=== PATIENT | male | born 1980 | race Caucasian/White ===

== ENCOUNTER 2016-05-12 19:47 | Emergency (ER) | payer MEDICARE, MEDICAID ==
--- NOTE | 2016-05-12 20:57 | XRAY Preliminary Report ---
Exam: XR Wrist 3 View RT IMPRESSION: Normal wrist radiography. [facility] SITE ID: [id number]
--- NOTE | 2016-05-12 21:07 | ED Physician Documentation ---
PD HPI UPPER EXT INJURY - Stated complaint Stated Complaint: GLF - RT WRIST INJURY - Chief complaint Chief Complaint: Ext Problem - History obtained from History obtained from: Patient - History of Present Illness Location: Right, Wrist Type of injury: Fall Timing - onset: How many days ago (3) Timing - duration: Days Timing - details: Abrupt onset, Still present Improved by: Rest Worsened by: Moving, Palpating Associated symptoms: Swelling (mild at wrist). No: Weakness, Numbness Similar symptoms before: Has not had sx before Review of Systems Skin: denies: Abrasion (s), Laceration (s) Neurologic: denies: Focal weakness, Numbness PD PAST MEDICAL HISTORY - Past Medical History Past Medical History: Yes Cardiovascular: Hypertension Respiratory: Asthma, Sleep apnea Neuro: Headache/migraine Endocrine/Autoimmune: None GI: GI bleed, Ulcers, Hiatal hernia, Cirrhosis : None HEENT: None Psych: Depression, Anxiety, Post traumatic stress disorder Musculoskeletal: Osteoarthritis Derm: None - Past Surgical History Past Surgical History: Yes General: Cholecystectomy Ortho: Other - Present Medications Home Medications: Ambulatory Orders Medication Instructions Recorded Confirmed Lisinopril 20 mg PO DAILY 07/04/14 05/12/16 Cyclobenzaprine [Flexeril] 10 mg PO TID PRN #14 tablet 09/17/15 05/12/16 Lisinopril 10 mg PO DAILY #30 tablet 05/12/16 Oxycodone HCl/Acetaminophen 1 each PO Q6H PRN #10 tablet 05/12/16 [Percocet 5-325 mg Tablet] - Allergies Allergies/Adverse Reactions: Allergies Allergy/AdvReac Type Severity Reaction Status Date / Time acetaminophen [From Vicodin] Allergy Itching Verified 05/12/16 21:55 clindamycin Allergy Anaphylaxis Verified 05/12/16 19:58 hydrocodone bitartrate * Allergy Itching Verified 05/12/16 21:55 [From Vicodin] sulfamethoxazole Allergy Anaphylaxis Verified 05/12/16 19:58 [From Bactrim] trimethoprim [From Bactrim] Allergy Anaphylaxis Verified 05/12/16 19:58 - Social History Does the pt smoke?: Yes Smoking Status: Current every day smoker Does the pt drink ETOH?: No Does the pt have substance abuse?: Yes - Immunizations Immunizations are current?: Yes - POLST Patient has POLST: No PD ED PE NORMAL - Vitals Vital signs reviewed: Yes (high blood pressuer) - General General: Alert and oriented X 3, No acute distress, Well developed/nourished - HEENT HEENT: Atraumatic - Neck Neck: Supple, no meningeal sign, No bony TTP, No adenopathy - Cardiac Cardiac: RRR, No murmur - Respiratory Respiratory: Clear bilaterally - Back Back: No spinal TTP - Derm Derm: Normal color, Warm and dry - Extremities Extremities: Other (right wrist with some radial side dorsal pain and tenderness. Mild swelling. ) - Neuro Neuro: Alert and oriented X 3, No motor deficit, No sensory deficit Results - Vitals Vitals: Oxygen O2 Source Room air PD MEDICAL DECISION MAKING - ED course Complexity details: reviewed results (no fracture; given wrist brace. He does have elevated BP here and he used to be on BP med, but had stopped it a year or so agao. Would be willing to resume taking BP meds. ), considered differential, d/w patient Departure - Departure Disposition: Home, Self Care Clinical Impression: Right wrist sprain Qualifiers: Encounter type: initial encounter Qualified Code(s): S63.501A - Unspecified sprain of right wrist, initial encounter Contusion of wrist, right Qualifiers: Encounter type: initial encounter Qualified Code(s): S60.211A - Contusion of right wrist, initial encounter Hypertension Qualifiers: Hypertension type: unspecified secondary hypertension Qualified Code(s): I15.9 - Secondary hypertension, unspecified Condition: Stable Record reviewed to determine appropriate education?: Yes Instructions: ED Splint Care Velcro, ED Sprain Wrist, ED Hypertension New Begin Tx Follow-Up: MINGO BABCOCK [Primary Care Provider] - Prescriptions: Lisinopril 10 mg PO DAILY #30 tablet Oxycodone HCl/Acetaminophen [Percocet 5-325 mg Tablet] 1 each PO Q6H PRN #10 tablet PRN Reason: Pain Comments: Wrist splint for 7-10 days until fully better. Tylenol or Ibuprofen as needed for pains. Rest and ice/elevate wrist for tonight and tomorrow for swelling. Discharge Date/Time: 05/12/16 22:03
--- NOTE | 2016-05-12 21:10 | XRAY Report ---
EXAM: RIGHT WRIST RADIOGRAPHY EXAM DATE: 05/12/2016 08:10 PM. CLINICAL HISTORY: Right wrist pain and swelling after a fall. COMPARISON: Right hand 12/06/2014. TECHNIQUE: 3 views. FINDINGS: Bones: Normal. No fractures or bone lesions. Joints: Normal. No subluxations. Soft Tissues: Normal. No soft tissue swelling. IMPRESSION: Normal wrist radiography. [facility] Referring Provider Line: [phone] SITE ID: [id number]
[2016-05-12] MEDS ORDERED: IBUPROFEN 600 MG TABLET PO STA (21:26)
[2016-05-12] MEDS ORDERED: HYDROcod/ACETAM 5/325 MG TABLET PO STA (21:26)
[2016-05-12] MEDS ORDERED: HYDROcod/ACETAM 5/325 MG TABLET ONE (21:31)
[2016-05-12] MEDS ORDERED: IBUPROFEN 600 MG TABLET PO ONE (21:31)
[2016-05-12] MEDS ORDERED: HYDROcod/ACET 5/325 Prepack 6 PO ONE ×2 (21:36→21:39)
[2016-05-12] MEDS ORDERED: oxyCODONE/ACET 5/325 Prepack 4 PO STA (21:54)
[2016-05-12 21:58] VITALS: BP 159/117
[2016-05-12] MEDS ORDERED: oxyCODONE/ACET 5/325 Prepack 4 PO ONE (21:58)
== END 2016-05-12 22:03 | disposition home or self-care (01) ==
LOC: ED 19:47
DX: S63.501A Unspecified sprain of right wrist, initial encounter (principal); S60.211A Contusion of right wrist, initial encounter; W01.0XXA Fall on same level from slipping, tripping and stumbling without subsequent striking against object, initial encounter; I15.9 Secondary hypertension, unspecified; F17.200 Nicotine dependence, unspecified, uncomplicated
CPT/HCPCS: 73110; 99283; 99284; A9270

== ENCOUNTER 2016-07-15 08:28 | Outpatient (CLI) | payer MEDICARE, MEDICAID | END 2016-07-15 08:29 | disposition home or self-care (01) | DX: M51.24 Other intervertebral disc displacement, thoracic region (principal); M47.894 Other spondylosis, thoracic region; M47.897 Other spondylosis, lumbosacral region ==

== ENCOUNTER 2016-08-03 17:17 | Emergency (ER) | payer MEDICARE, MEDICAID | END 2016-08-03 17:50 | disposition home or self-care (01) | DX: M54.41 Lumbago with sciatica, right side (principal); G89.29 Other chronic pain; M54.6 Pain in thoracic spine; I10 Essential (primary) hypertension; J45.909 Unspecified asthma, uncomplicated; G47.30 Sleep apnea, unspecified; Z87.11 Personal history of peptic ulcer disease; M19.90 Unspecified osteoarthritis, unspecified site; F17.200 Nicotine dependence, unspecified, uncomplicated ==

== ENCOUNTER 2017-01-19 18:11 | Inpatient (IN) | payer MEDICARE, MEDICAID ==
[2017-01-19] MEDS ORDERED: MORPHINE 10 MG/ML VIAL IVP STA (18:40)
[2017-01-19 18:41] LABS: BILIRUBIN,URINE NEGATIVE (NEGATIVE)
[2017-01-19] MEDS ORDERED: IOPAMIDOL-300 100 ML VIAL ONE (18:49)
[2017-01-19] MEDS ORDERED: IOPAMIDOL-300 100 ML VIAL IVP ONE (18:50)
[2017-01-19 18:54] LABS: UA w/ MICROSCOPIC CHARGE YES
--- NOTE | 2017-01-19 18:58 | ED Physician Documentation ---
PD HPI Fall - Stated complaint Stated Complaint: ARM PX - Chief complaint Chief Complaint: Abd Pain - History obtained from History obtained from: Patient, Family - History of Present Illness Mechanism of injury: Tripped Fall distance: Other (walking into his front door) Where injury occurred: Home Timing - onset: How many hours ago (1) Injury(ies) location: Head, Chest, Abdomen, Back Pain level max: 8 Pain level now: 8 Quality of pain: Pain, Aching, Dull Associated symptoms: Other (hematuria). No: LOC, AMS, Amnesia, Seizures, Ear drainage, Nasal drainage, Neck pain, Weakness, Paresthesias, Dyspnea, Nausea / vomiting, Hematemesis, Abdominal distension Symptoms improve with: Rest Worsens with: Movement, Palpation Contributing factors: Intoxicated Similar symptoms before: Has not had sx before Recently seen: Not recently seen - Additional information Additional information: Patient tripped and fell walking into his home. Fell onto a tile step. Struck his head on the door. Also complained of pain to the right shoulder, right ribs , low back, right flank and right lower abdomen. States had hematuria grossly after the event. Review of Systems Ten Systems: 10 systems reviewed and negative Constitutional: denies: Fever, Chills Eyes: denies: Decreased vision Ears: denies: Ear pain Nose: denies: Rhinorrhea / runny nose, Congestion PD PAST MEDICAL HISTORY - Past Medical History Cardiovascular: Hypertension Respiratory: Asthma, Sleep apnea Neuro: Headache/migraine Endocrine/Autoimmune: None GI: GI bleed, Ulcers, Hiatal hernia, Cirrhosis : None HEENT: None Psych: Depression, Anxiety, Post traumatic stress disorder Musculoskeletal: Osteoarthritis Derm: None - Past Surgical History Past Surgical History: Yes General: Cholecystectomy, Gastric surgery Ortho: Other - Present Medications Home Medications: Ambulatory Orders Medication Instructions Recorded Confirmed Lisinopril 20 mg PO DAILY 07/04/14 01/19/17 - Allergies Allergies/Adverse Reactions: Allergies Allergy/AdvReac Type Severity Reaction Status Date / Time clindamycin Allergy Anaphylaxis Verified 01/19/17 18:19 hydrocodone bitartrate * Allergy Itching Verified 01/19/17 18:19 [From Vicodin] sulfamethoxazole Allergy Anaphylaxis Verified 01/19/17 18:19 [From Bactrim] trimethoprim [From Bactrim] Allergy Anaphylaxis Verified 01/19/17 18:19 - Social History Does the pt smoke?: Yes Smoking Status: Current every day smoker Does the pt drink ETOH?: No Does the pt have substance abuse?: Yes - Immunizations Immunizations are current?: Yes - POLST Patient has POLST: No PD ED PE NORMAL - Vitals Vital signs reviewed: Yes - General General: Alert and oriented X 3, No acute distress, Well developed/nourished - HEENT HEENT: PERRL, Moist mucous membranes - Neck Neck: Supple, no meningeal sign - Cardiac Cardiac: RRR, Strong equal pulses - Respiratory Respiratory: No respiratory distress, Clear bilaterally - Abdomen Abdomen: Soft, Other (Tender to palpation right upper and right lower quadrant.) - Back Back: No spinal TTP, Other (Tender to palpation along the right flank, upper and lower) - Derm Derm: Warm and dry, No rash - Extremities Extremities: Other (Tender to palpation about the right shoulder, limited range of motion secondary to pain. Neurovascularly intact. Otherwise normal exam of the extremities) - Neuro Neuro: Alert and oriented X 3, global compensation manager 2-12 intact, No motor deficit, No sensory deficit, Normal speech - Psych Psych: Normal mood, Normal affect Results - Vitals Vitals: Vital Signs - 24 hr 01/19/17 01/19/17 01/19/17 18:15 19:37 20:22 Temperature 36.8 C 36.3 C L Heart Rate 91 80 73 Respiratory 16 18 16 Rate Blood Pressure 153/98 H 147/87 H 138/86 H O2 Saturation 100 100 100 Oxygen O2 Source Room air - Labs Labs: Laboratory Tests 01/19/17 01/19/17 01/19/17 18:30 18:50 18:50 WBC 5.6 RBC 3.05 L Hgb 10.9 L Hct 32.4 L MCV 106.2 H MCH 35.8 H MCHC 33.7 RDW 13.9 Plt Count 151 MPV 9.4 Neut # 3.2 Lymph # 1.7 [place] # 0.5 Eos # 0.2 Baso # 0.1 Absolute Nucleated RBC 0.00 Nucleated RBC % 0.1 Sodium 136 Potassium 4.8 Chloride 107 Carbon Dioxide 19 L Anion Gap 10.0 BUN 42 H Creatinine 3.6 H Estimated GFR (MDRD) 19 L Glucose 101 H Calcium 8.1 L Total Bilirubin 0.5 AST 21 ALT 13 Alkaline Phosphatase 180 H Total Protein 7.4 Albumin 3.7 Globulin 3.7 Albumin/Globulin Ratio 1.0 Lipase 84 H Urine Color YELLOW Urine Clarity CLEAR Urine pH 6.0 Ur Specific [place] 1.010 Urine Protein 100 H Urine Glucose (UA) NEGATIVE Urine Ketones NEGATIVE Urine Occult Blood TRACE-INTA Urine Nitrite NEGATIVE Urine Bilirubin NEGATIVE Urine Urobilinogen 0.2 (NORMAL) Ur Leukocyte Esterase NEGATIVE Urine RBC 0-5 Urine WBC 0-3 Ur Squamous Epith Cells NONE SEEN Urine Bacteria None Seen Ur Microscopic Review INDICATED Urine Culture Comments NOT INDICATED Ethyl Alcohol 177.0 - Rads (name of study) Head CT Radiology: Prelim report reviewed, EMP read contemporaneously, See rad report ( Normal) Chest CT Radiology: Prelim report reviewed, EMP read contemporaneously, See rad report ( No acute chest abnormalities. Stable large hiatal hernia) Abdomen and pelvis CT Radiology: Prelim report reviewed, EMP read contemporaneously, See rad report ( No acute abnormalities of the abdomen and pelvis. Cholecystectomy and rectosigmoid anastomosis noted. Stable pancreatic head calcifications compatible with prior pancreatitis.) Right shoulder x-ray Radiology: Prelim report reviewed, EMP read contemporaneously, See rad report ( Negative shoulder radiography. ) PD MEDICAL DECISION MAKING - ED course Complexity details: reviewed old records, reviewed results, re-evaluated patient , considered differential, d/w patient, d/w family ED course: Patient is a 36-year-old male who presents to the emergency department after a fall onto tile steps. Had gross hematuria and diffuse abdominal pain after the event, the abdominal pain is worse in the right lower and right upper quadrants. Also had diffuse chest pain as well as striking his head on a door. He is not clinically intoxicated but smells of etoh, no neck tenderness. No neurological deficits. He is found to have acute renal failure, unclear etiology. Has had some chronic kidney disease in the past, but this is worse than his usual. Given IV fluids and will place in observation. Discuss case with the hospitalist, Dr. Sahu who accepts. This document was made in part using voice recognition software. While efforts are made to proofread this document, sound alike and grammatical errors may occur. Departure - Departure Disposition: ED Place in Observation Clinical Impression: Acute renal failure Qualifiers: Acute renal failure type: unspecified Qualified Code(s): N17.9 - Acute kidney failure, unspecified Alcohol intoxication Qualifiers: Complication of substance-induced condition: uncomplicated Qualified Code(s): F10.920 - Alcohol use, unspecified with intoxication, uncomplicated Fall Qualifiers: Encounter type: initial encounter Qualified Code(s): W19.XXXA - Unspecified fall, initial encounter Rib contusion Qualifiers: Encounter type: initial encounter Laterality: right Qualified Code(s): S20.211A - Contusion of right front wall of thorax, initial encounter Hematuria Qualifiers: Hematuria type: unspecified type Qualified Code(s): R31.9 - Hematuria, unspecified Condition: Stable Discharge Date/Time: 01/19/17 22:02
[2017-01-19 19:02] LABS: UR CULTURE IF IND NOT INDICATED; WBC,URINE 0-3 /HPF (0-3)
[2017-01-19 19:06] LABS: BASOPHILS # (AUTO) 0.1 10^3/uL (0.0-0.1); BASOPHILS % (AUTO) 1.2 %; EOSINOPHILS # (AUTO) 0.2 10^3/uL (0.0-0.7); EOSINOPHILS % (AUTO) 2.9 %; HCT - HEMATOCRIT 32.4 % (42.0-52.0); HGB - HEMOGLOBIN 10.9 g/dL (14.0-18.0); LYMPHOCYTES # (AUTO) 1.7 10^3/uL (1.5-3.5); LYMPHOCYTES % (AUTO) 30.6 %; MEAN CORPUSCULAR HEMOGLOBIN 35.8 pg (27.0-31.0); MEAN CORPUSCULAR HGB CONC 33.7 g/dL (32.0-36.0); MEAN CORPUSCULAR VOLUME 106.2 fL (80.0-94.0); MEAN PLATELET VOLUME 9.4 fL (7.4-11.4); MONOCYTES # (AUTO) 0.5 10^3/uL (0.0-1.0); MONOCYTES % (AUTO) 9.4 %; NEUTROPHILS # (AUTO) 3.2 10^3/uL (1.5-6.6); NEUTROPHILS % (AUTO) 55.9 %; NUCLEATED RED BLOOD CELLS AUTO 0.1 /100WBC; RED BLOOD COUNT 3.05 10^6/uL (4.70-6.10); RED CELL DISTRIBUTION WIDTH 13.9 % (12.0-15.0); UNCORRECTED WHITE BLOOD COUNT 5.6 x10^3/uL; WHITE BLOOD COUNT 5.6 x10^3/uL (4.8-10.8)
[2017-01-19] MEDS ORDERED: SODIUM CHLORIDE 0.9% 1,000 ML IV ONE ×2 (19:17→21:20)
[2017-01-19 19:18] LABS: BILIRUBIN,TOTAL 0.5 mg/dL (0.2-1.0); CALCIUM 8.1 mg/dL (8.5-10.3); CREATININE 3.6 mg/dL (0.6-1.2); POTASSIUM 4.8 mmol/L (3.5-5.0); TOTAL PROTEIN 7.4 g/dL (6.7-8.2)
[2017-01-19] MEDS ORDERED: MORPHINE 10 MG/ML VIAL ONE (19:34)
[2017-01-19] MEDS ORDERED: SODIUM CHLORIDE FLUSH 0.9% 10 ML SYRINGE IVP ONE (19:34)
--- NOTE | 2017-01-19 19:50 | XRAY Report ---
EXAM: RIGHT SHOULDER RADIOGRAPHY EXAM DATE: 01/19/2017 07:20 PM. CLINICAL HISTORY: Shoulder pain COMPARISON: None. TECHNIQUE: 3 views. FINDINGS: Bones: Normal. No fracture or bone lesion. Joints: The glenohumeral and acromioclavicular joints are normal. Soft tissues: The visualized hemithorax is unremarkable. No soft tissue swelling. IMPRESSION: Negative shoulder radiography. [facility] Referring Provider Line: [phone] SITE ID: [id number]
--- NOTE | 2017-01-19 19:52 | CT Preliminary Report ---
Exam: CT HEAD W/O IMPRESSION: Normal head CT. [facility] SITE ID: [id number]
--- NOTE | 2017-01-19 19:54 | CT Report ---
EXAM: CT HEAD EXAM DATE: 01/19/2017 07:26 PM. CLINICAL HISTORY: Fall. Head injury. COMPARISON: None. TECHNIQUE: Multiaxial CT images were obtained from the foramen magnum to the vertex. IV contrast: Non e. Reformats: Coronal. In accordance with CT protocol optimization, one or more of the following dose reduction techniques w ere utilized for this exam: automated exposure control, adjustment of mA and/or KV based on patient s ize, or use of iterative reconstructive technique. FINDINGS: Parenchyma: No intraparenchymal hemorrhage. No evidence of mass, midline shift, or CT findings of inf arction. Moreland-white differentiation is distinct. Extraaxial Spaces: Normal for age. No subdural or epidural collections identified. Ventricles: Normal in size and position. Sinuses and orbits: Imaged paranasal sinuses, orbits, and mastoids show no significant abnormality. Bones: No evidence of fracture or calvarial defect. Other: None. IMPRESSION: Normal head CT. [facility] Referring Provider Line: [phone] SITE ID: [id number]
--- NOTE | 2017-01-19 19:59 | CT Preliminary Report ---
Exam: CT CHEST W/ IMPRESSION: 1. No acute chest abnormalities identified. 2. Stable large hiatal hernia. [facility] SITE ID: [id number]
--- NOTE | 2017-01-19 20:02 | CT Report ---
EXAM: CT CHEST EXAM DATE: 01/19/2017 07:26 PM. CLINICAL HISTORY: Fall. Right-sided pain. COMPARISONS: 10/08/2014. TECHNIQUE: Routine helical CT imaging was performed through the chest. IV contrast: None. Reconstruct ions: Coronal and sagittal. In accordance with CT protocol optimization, one or more of the following dose reduction techniques w ere utilized for this exam: automated exposure control, adjustment of mA and/or KV based on patient s ize, or use of iterative reconstructive technique. FINDINGS: Lungs/Pleura: No nodules, bronchial thickening, consolidation, or edema. Pulmonary vasculature is nor mal. No pericardial or pleural effusion. No pneumothorax. Mediastinum: Coronary artery calcification noted. No adenopathy or masses. The heart and great vessel s are normal. Stable large hiatal hernia Bones: No fractures identified. IMPRESSION: 1. No acute chest abnormalities identified. 2. Stable large hiatal hernia. [facility] Referring Provider Line: [phone] SITE ID: [id number]
--- NOTE | 2017-01-19 20:04 | CT Preliminary Report ---
Exam: CT ABDOMEN/PELVIS W/ IMPRESSION: 1. No acute abnormalities of the abdomen and pelvis. 2. Cholecystectomy and rectosigmoid anastomosis noted. 3. Stable pancreatic head calcifications compatible with prior pancreatitis. [facility] SITE ID: [id number]
--- NOTE | 2017-01-19 20:07 | CT Report ---
EXAM: CT ABDOMEN AND PELVIS EXAM DATE: 01/19/2017 07:26 PM. CLINICAL HISTORY: Fall. Right flank pain/hematuria. COMPARISONS: 06/21/2015. TECHNIQUE: Routine helical CT imaging was performed through the abdomen and pelvis. IV contrast: 100 cc of Isovue-300. Enteric contrast: No. Reconstructions: Coronal and sagittal. In accordance with CT protocol optimization, one or more of the following dose reduction techniques w ere utilized for this exam: automated exposure control, adjustment of mA and/or KV based on patient s ize, or use of iterative reconstructive technique. FINDINGS: Liver: Normal. No masses. Gallbladder/Bile Ducts: Cholecystectomy. No ductal dilatation. Spleen: Normal. Pancreas: Stable pancreatic head calcifications, likely from prior pancreatitis. Adrenal Glands: Normal. Kidneys: Normal. No masses or hydronephrosis. Peritoneal Cavity/Bowel: Rectosigmoid anastomosis noted. No free fluid, free air or adenopathy. No ma sses or acute inflammatory process. The appendix is well visualized and normal. Pelvic Organs: The prostate and bladder are unremarkable. Vasculature: No aneurysms or other significant abnormality. Bones: No significant abnormality. Other: None. IMPRESSION: 1. No acute abnormalities of the abdomen and pelvis. 2. Cholecystectomy and rectosigmoid anastomosis noted. 3. Stable pancreatic head calcifications compatible with prior pancreatitis. [facility] Referring Provider Line: [phone] SITE ID: [id number]
[2017-01-19] MEDS ORDERED: PROCHLORPERAZINE 10 MG/2 ML VIAL IVP PRN (21:12)
[2017-01-19] MEDS ORDERED: ONDANSETRON 4 MG/2 ML VIAL IVP PRN (21:12)
[2017-01-19] MEDS ORDERED: ACETAMINOPHEN 325 MG TABLET PO PRN (21:12)
[2017-01-19] MEDS ORDERED: SODIUM CHLORIDE 0.9% 1,000 ML IV SCH ×2 (21:12→22:00)
[2017-01-19] MEDS: oxyCODONE 5 MG TABLET PO PRN (22:26)
[2017-01-19] MEDS: SODIUM CHLORIDE FLUSH 0.9% 10 ML SYRINGE IVP SCH (22:26)
[2017-01-20] MEDS: ZOLPIDEM 5 MG TABLET PO PRN (01:09)
[2017-01-20] MEDS: NICOTINE 21 MG PATCH TOP SCH ×2 (01:09→09:44)
[2017-01-20] MEDS: SODIUM CHLORIDE FLUSH 0.9% 10 ML SYRINGE IVP PRN ×3 (01:09→11:44)
[2017-01-20] MEDS: oxyCODONE 5 MG TABLET PO PRN ×5 (02:28→19:51)
[2017-01-20] MEDS: ACETAMINOPHEN 1,000 MG/100 ML 100 ML IV PRN ×2 (03:14→09:24)
--- NOTE | 2017-01-20 04:01 | HISTORY & PHYSICAL EXAMINATION ---
Chief Complaint - Chief Complaint Chief Complaint: Fall History of Present Illness - Admitted From Admitted From:: Emergency department - History Obtained From Records Reviewed: Yes History obtained from: Patient and medical records Exam Limitations: None - History of Present Illness HPI Comment/Other: Patient is a 36-year-old gentleman with a past medical history significant for hypertension, asthma, chronic kidney disease stage III, diverticulitis status post colon resection, alcohol and tobacco abuse who presented to the emergency department with a chief complaint of fall. The patient states that he had an episode 2 days ago where he blacked out and passed out hitting his head. The patient states that he was not drinking at that time. The patient has always denied drinking every time he is come to the emergency department or being admitted to the hospital but his blood alcohol level has always been positive the patient believes he is a slow metabolizer of alcohol and that is why his alcohol level is always significantly above the legal limit when he presents to the emergency department. The patient states that today he was going up the stairs when he fell hitting his left flank on the staircase. The patient states that when he then went to the bathroom he noticed that he was having some hematuria and therefore decided to come into the emergency department. The patient also states that he is having left lower back, left lower abdominal and left leg pain. The patient also states that he has been having dysuria for 1 week along with a weak stream. The patient states that he has also noticed chills and feeling of hot and cold that has been going on for the last week. The patient otherwise denies any diarrhea or vomiting over the last several days. The patient states that he did drink 1 beer and had half a shot of fireball today but is shocked by his blood alcohol level on presentation. The patient denies any current headache, blurred vision, runny nose, sore throat , cough, nasal congestion, fevers, chest pain, shortness of air, orthopnea, PND , increased lower extremity swelling, diarrhea, constipation, nausea, vomiting, changes in appetite, recent unintentional weight loss, night sweats or focal neurologic deficits. On presentation to the emergency department the patient was afebrile he was slightly hypertensive and heart rate was in the 90s but otherwise he was not in any acute respiratory distress. The patient's lab work did reveal a blood alcohol level of 177. The patient's urine was negative for bacteria and he only had 0-3 WBCs along with 0-5 RBCs with trace occult blood. The patient however was found to have a creatinine of 3.6 with a BUN of 42. The patient's baseline creatinine is 1.7. Given this significant increase in the patient's creatinine the patient was placed in observation for IV hydration and recheck of his creatinine. It was thought the patient likely has been drinking heavily given his recent falls and positive blood alcohol level and creatinine is likely elevated due to dehydration. History - Past Medical History Cardiovascular: reports: Hypertension Respiratory: reports: Asthma, Sleep apnea Neuro: reports: Headache/migraine Endocrine/Autoimmune: reports: None GI: reports: GI bleed, Ulcers, Hiatal hernia, Diverticulitis (Status post colon resection ) : reports: None HEENT: reports: None Psych: reports: Depression, Anxiety, Post traumatic stress disorder Musculoskeletal: reports: Osteoarthritis Derm: reports: None MRSA Hx?: No - Past Surgical History General: reports: Cholecystectomy, Gastric surgery Ortho: reports: Other - Family & Social History Family History: Mother: Hypertension, Father: CVA/TIA, Hypertension Living arrangement: At home Living Situation: With spouse/s.o. Social History Notes: The patient lives in [place] with his . Is been to his for the last 5 years. They have one child who is 12 years old. 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 The patient and his are originally from [place]. The patient states that he only drinks 1-2 beers on weekends and is not a daily drinker. The patient does admit to smoking half a pack to three quarters a pack of cigarettes a day. He also admits to using marijuana occasionally. He denies any other illicit drug use. - Substance History Tobacco Details: Cigarettes - POLST Patient has POLST: No POLST Status: Full Code Meds/Allgy - Home Medications Home Medications: Ambulatory Orders Medication Instructions Recorded Confirmed Lisinopril 20 mg PO DAILY 07/04/14 01/19/17 - Allergies Allergies/Adverse Reactions: Allergies Allergy/AdvReac Type Severity Reaction Status Date / Time clindamycin Allergy Anaphylaxis Verified 01/19/17 18:19 hydrocodone bitartrate * Allergy Itching Verified 01/19/17 18:19 [From Vicodin] sulfamethoxazole Allergy Anaphylaxis Verified 01/19/17 18:19 [From Bactrim] trimethoprim [From Bactrim] Allergy Anaphylaxis Verified 01/19/17 18:19 Review of Systems - Other Findings Other Findings: A comprehensive review of systems was performed the pertinent positives and negatives are stated above in the HPI and the remainder of the review of systems is negative. Exam - Vital Signs Reviewed Vital Signs: Yes Vital Signs: Vital Signs x48h Temp Pulse Pulse Resp BP BP Pulse Ox 01/20/17 00:17 37.1 C 79 16 137/90 H 97 01/19/17 22:00 36.8 C 71 18 151/98 H 100 01/19/17 21:36 36.5 C 69 20 143/93 H 98 - Physical Exam General Appearance: positive: No acute distress, Alert, Other (Several abrasions on his forehead) Eyes Bilateral: positive: Normal inspection, PERRL, EOMI, No lid inflammation, Conjunctivae nml, No scleral icterus ENT: positive: ENT inspection nml, Pharynx nml, Dry mucous membranes. negative : Purulent nasal drainage, Pharyngeal erythema, Oral lesions Neck: positive: Nml inspection, Thyroid nml, No JVD, Trachea midline. negative : Thyromegaly, Lymphadenopathy (R), Lymphadenopathy (L), Stiff neck, Carotid bruit, Tracheal deviation Respiratory: positive: Chest non-tender, No respiratory distress, Breath sounds nml. negative: Wheezes, Rales, Rhonchi Cardiovascular: positive: Regular rate & rhythm, No murmur, No gallop Peripheral Pulses: positive: 2+ Abdomen: positive: Non-tender, No organomegaly, Nml bowel sounds, No distention. negative: Guarding, Rebound, Hepatomegaly Back: positive: Nml inspection. negative: CVA tenderness (R), CVA tenderness (L ) Skin: positive: Color nml, No rash, Dry. negative: Cyanosis, Diaphoresis, Pallor, Skin rash Extremities: positive: Non-tender, Full ROM, Nml appearance, No pedal edema Neurologic/Psychiatric: positive: Oriented x3, CN's nml (2-12), Motor nml, Sensation nml, Mood/affect nml Conclusion/Plan - Problem List (1) Acute on chronic renal failure Conclusion/Plan: Patient presented with acute on chronic renal failure. The patient has CKD stage III and baseline creatinine is around 1.7. On presentation to the emergency department the patient's creatinine is 3.6 with a BUN of 42. Patient also has a bicarb of 19 suggesting some metabolic acidosis with no anion gap. The etiology of the patient's acute on chronic renal failure appears to be secondary to dehydration likely secondary to excessive alcohol use. Although the patient denies heavy alcohol use from looking at his previous records and he is presenting blood alcohol level in conjunction with his recent falls as well as his elevated MCV and findings of chronic pancreatitis on CT scan of the abdomen it is highly probable that the patient is a heavy drinker and may recently have gone on a binge. Plan: Patient will be given IV fluids We will monitor the patient's creatinine Avoid nephrotoxic agent She will need to follow-up with nephrology Qualifiers: Acute renal failure type: unspecified Chronic kidney disease stage: stage 3 (moderate) Qualified Code(s): N17.9 - Acute kidney failure, unspecified; N18.3 - Chronic kidney disease, stage 3 (moderate); N18.3 - Chronic kidney disease, stage 3 (moderate) (2) Alcohol abuse Conclusion/Plan: Although patient denies that he appears to be a heavy drinker and has problems with alcohol abuse. This is evident from the fact the patient has presented to the emergency room multiple times with blood alcohol levels significantly greater than the legal limit. The patient however states that he thinks he is a slow metabolizer of alcohol and despite not drinking for several days his alcohol level will still be positive. This does not appear to be true as the patient presented on 01-27-2015 with a blood alcohol level of 325.3 and by and 12 hours later when his blood alcohol level was rechecked it was 26.6 which would suggest a normal metabolism. The patient is likely in denial about his alcohol problem. He has had recent falls, has an elevated MCV and has finding of chronic pancreatitis on his CT scan Alcohol abuse likely appears to be the cause of the patient's acute on chronic renal failure. Plan: Patient will be placed on alcohol withdrawal protocol Patient will be given a banana bag with multivitamin, folate acid, thiamine The patient was counseled on need to quit drinking (3) Tobacco abuse Conclusion/Plan: Patient does admit to smoking half to three quarters a pack a day The patient was advised to quit smoking He was given a nicotine patch. (4) Hypertension Conclusion/Plan: The patient was hypertensive on presentation he is on lisinopril at home but lisinopril will be held given that the patient has acute renal failure. Patient 's blood pressure will be monitored and if needed a antihypertensive will be added. Qualifiers: Hypertension type: essential hypertension Qualified Code(s): I10 - Essential (primary) hypertension - Lab Results Lab results reviewed: Yes Fish Bones: 01/19/17 18:50 01/19/17 18:50 - Diagnostic Imaging Results Diagnostic Imaging Results: positive: Final report reviewed Diagnostic Imaging Results Comments: CT head Impression: Normal head CT CT abdomen/pelvis Impression: 1. No acute abnormalities of the abdomen and pelvis. 2. Cholecystectomy and rectosigmoid anastomosis noted. 3. Stable pancreatic head calcifications compatible with prior pancreatitis CT chest Impression: 1. No acute chest abnormalities identified. 2. Stable large hiatal hernia. Shoulder x-ray Impression: Negative shoulder radiography. Issues/Core Measures - Anticipated LOS Anticipated Stay Length: Less than 2 midnights - DVT/VTE - Prophylaxis VTE/DVT Device ordered at admit?: Yes
[2017-01-20] MEDS ORDERED: MAGNESIUM SULFATE 2 GRAM 2 GM/50 ML BAG IV SCH (04:39)
[2017-01-20 05:58] LABS: BASOPHILS # (AUTO) 0.1 10^3/uL (0.0-0.1); BASOPHILS % (AUTO) 1.3 %; EOSINOPHILS # (AUTO) 0.1 10^3/uL (0.0-0.7); EOSINOPHILS % (AUTO) 2.5 %; HGB - HEMOGLOBIN 9.4 g/dL (14.0-18.0); LYMPHOCYTES # (AUTO) 1.8 10^3/uL (1.5-3.5); LYMPHOCYTES % (AUTO) 36.8 %; MEAN CORPUSCULAR HEMOGLOBIN 35.9 pg (27.0-31.0); MEAN CORPUSCULAR HGB CONC 33.5 g/dL (32.0-36.0); MEAN CORPUSCULAR VOLUME 107.2 fL (80.0-94.0); MEAN PLATELET VOLUME 8.9 fL (7.4-11.4); MONOCYTES # (AUTO) 0.5 10^3/uL (0.0-1.0); MONOCYTES % (AUTO) 9.8 %; NEUTROPHILS # (AUTO) 2.4 10^3/uL (1.5-6.6); NEUTROPHILS % (AUTO) 49.6 %; NUCLEATED RED BLOOD CELLS AUTO 0.1 /100WBC; RED BLOOD COUNT 2.62 10^6/uL (4.70-6.10); RED CELL DISTRIBUTION WIDTH 13.8 % (12.0-15.0); UNCORRECTED WHITE BLOOD COUNT 4.9 x10^3/uL; WHITE BLOOD COUNT 4.9 x10^3/uL (4.8-10.8)
[2017-01-20 06:02] LABS: INR 1.1 (0.8-1.2); PT - PROTHROMBIN TIME 12.1 secs (9.9-12.6)
[2017-01-20 06:08] LABS: BILIRUBIN,TOTAL 0.4 mg/dL (0.2-1.0); CALCIUM 7.5 mg/dL (8.5-10.3); CREATININE 3.2 mg/dL (0.6-1.2); MAGNESIUM 1.6 mg/dL (1.7-2.8); PHOSPHORUS 4.7 mg/dL (2.5-4.6); POTASSIUM 5.2 mmol/L (3.5-5.0)
[2017-01-20] MEDS: LORazepam 0.5 MG TABLET PO PRN (06:09)
[2017-01-20] MEDS: SODIUM CHLORIDE FLUSH 0.9% 10 ML SYRINGE IVP SCH ×3 (06:10→21:02)
[2017-01-20] MEDS ORDERED: MAGNESIUM SULFATE 2 GRAM 2 GM/50 ML BAG IV ONE (08:39)
[2017-01-20] MEDS ORDERED: SODIUM CHLORIDE 0.9% 1,000 ML IV ONE (08:44)
--- NOTE | 2017-01-20 08:50 | PROVIDER PROGRESS NOTE ---
Assessment/Plan - Problem List (1) Fall as cause of accidental injury at home as place of occurrence Qualifiers: Encounter type: subsequent encounter Qualified Code(s): W19.XXXD - Unspecified fall, subsequent encounter; Y92.009 - Unspecified place in unspecified non-institutional (private) residence as the place of occurrence of the external cause; Y92.009 - Unspecified place in unspecified non- institutional (private) residence as the place of occurrence of the external cause Assessment/Plan: acute. patient has pain in the lower back and will need additional pain medications with IV morphine and dilaudid. He fell and hit his lower back and is requiring high level of pain medication. he had hematuria but Ultrasound of kidney is normal. he probably fell related to the alcohol intoxification. (2) Acute kidney injury superimposed on chronic kidney disease Assessment/Plan: acute on chronic. continue to monitor kidney function with daily lab draws and will give aggressive IVF hydration and monitor output. ultrasound of kidney was normal with no hydronephrosis. (3) Alcohol abuse with alcohol-induced disorder Assessment/Plan: ACUTE ON CHRONIC. counseling provided. CIWA protocol. Ativan and telemetry monitoring. will continue to monitor electrolytes with daily lab draws. (4) Nicotine dependence, cigarettes, uncomplicated Assessment/Plan: ongoing. will give counseling and nicotine patch PRN - Current Meds Current Meds: Current Medications Generic Name Dose Route Start Last Admin Trade Name Freq PRN Reason Stop Dose Admin Sodium Chloride 1,000 mls @ 100 mls/hr 01/19/17 22:00 01/20/17 01:09 Normal Saline 0.9% IV 100 mls/hr .Q10H WILLARD Administration Acetaminophen 100 mls @ 400 mls/hr 01/20/17 02:32 01/20/17 03:31 Ofirmev IV Infused Q6HR PRN Infusion PAIN Lorazepam 2 mg 01/20/17 04:39 01/20/17 06:09 Ativan PO 2 mg Q1H PRN Administration CIWA>8 Protocol Nicotine 1 patch 01/19/17 23:00 01/20/17 01:09 Nicoderm TOP 1 patch DAILY WILLARD Administration Oxycodone HCl 10 mg 01/19/17 21:12 01/20/17 06:58 Roxicodone PO 10 mg Q4HR PRN Administration Pain 8 to 10 Sodium Chloride 10 ml 01/19/17 21:12 01/20/17 01:09 Normal Saline Flush 0.9% IVP 10 ml PRN PRN Administration NEEDED PER PROVIDER ORDERS Sodium Chloride 10 ml 01/19/17 22:00 01/20/17 06:10 Normal Saline Flush 0.9% IVP Not Given Q8HR WILLARD Zolpidem Tartrate 5 mg 01/19/17 21:12 01/20/17 01:09 Ambien PO 5 mg QPM PRN Administration Insomnia - Lab Result Lab results reviewed: Yes Fish Bone Diagrams: 01/20/17 05:46 01/20/17 13:03 Other Lab Results: Abnormal Lab Results 01/19/17 01/19/17 01/19/17 18:30 18:50 18:50 RBC 3.05 10^6/uL L 10^6/uL (4.70-6.10) Hgb 10.9 g/dL L g/dL (14.0-18.0) Hct 32.4 % L % (42.0-52.0) MCV 106.2 fL H fL (80.0-94.0) MCH 35.8 pg H pg (27.0-31.0) Plt Count Potassium Chloride Carbon Dioxide 19 mmol/L L mmol/L (21-32) BUN 42 mg/dL H mg/dL (6-20) Creatinine 3.6 mg/dL H mg/dL (0.6-1.2) Estimated GFR (MDRD) 19 L (>89) Glucose 101 mg/dL H mg/dL (70-100) Calcium 8.1 mg/dL L mg/dL (8.5-10.3) Phosphorus Magnesium Alkaline Phosphatase 180 IU/L H IU/L (42-121) Total Protein Albumin Lipase 84 U/L H U/L (22-51) Urine Protein 100 mg/dL H mg/dL (NEGATIVE) 01/20/17 01/20/17 05:46 05:46 RBC 2.62 10^6/uL L 10^6/uL (4.70-6.10) Hgb 9.4 g/dL L g/dL (14.0-18.0) Hct 28.0 % L % (42.0-52.0) MCV 107.2 fL H fL (80.0-94.0) MCH 35.9 pg H pg (27.0-31.0) Plt Count 104 10^3/uL L 10^3/uL (130-450) Potassium 5.2 mmol/L H mmol/L (3.5-5.0) Chloride 112 mmol/L H mmol/L (101-111) Carbon Dioxide 18 mmol/L L mmol/L (21-32) BUN 37 mg/dL H mg/dL (6-20) Creatinine 3.2 mg/dL H mg/dL (0.6-1.2) Estimated GFR (MDRD) 22 L (>89) Glucose Calcium 7.5 mg/dL L mg/dL (8.5-10.3) Phosphorus 4.7 mg/dL H mg/dL (2.5-4.6) Magnesium 1.6 mg/dL L mg/dL (1.7-2.8) Alkaline Phosphatase 141 IU/L H IU/L (42-121) Total Protein 6.0 g/dL L g/dL (6.7-8.2) Albumin 3.0 g/dL L g/dL (3.2-5.5) Lipase Urine Protein - EKG Results EKG Interpreted Independently: Yes - Additional Planning Condition/Complexity: Stable My Orders: My Active Orders 01/20/17 08:39 Magnesium Sulfate 2 Gram [Magnesium Sulfate] 2 gm in 50 ml IV ONCE 01/20/17 08:41 Admit \ Transfer \ Status [RC] .ONCE 01/20/17 08:43 Retroperitoneal Limited [US] Stat 01/20/17 08:44 Sodium Chloride 0.9% [Normal Saline 0.9%] 1,000 ml IV ONCE 01/20/17 08:47 FERRITIN [IAI] Routine IRON TIBC PANEL [CHEM] Routine LDH - LACTATE DEHYDROGENASE [CHEM] Routine RETIC [HEME] Routine VITAMIN B12 [IAI] Routine 01/20/17 08:48 PT WITH INR [COAG] Urgent 01/21/17 05:00 MAGNESIUM [CHEM] DAILYLAB Plan Discussed with:: Patient Time Spent: 31-60 minutes Additional Planning Notes: patient will need additional inpatient stay because his kidney function has not improved enough to be safely discharged home. will continue to monitor and plan to discharge in the next 24-48 hours. Time spent with patient was 40 minutes for planning and assessment Subjective - Subjective Patient Reports: Abdominal Pain, Back Pain Nursing Reports: Pain (PAIN IN LOWER BACK AND STILL HAS BLOOD IN URINE) Objective Vital Signs: Vital Signs - 24 hr 01/19/17 01/19/17 01/20/17 21:36 22:00 00:17 Temperature 36.5 C 36.8 C 37.1 C Heart Rate 69 Heart Rate [ 71 79 Brachial] Respiratory 20 18 16 Rate Blood Pressure 143/93 H Blood Pressure 151/98 H 137/90 H [Right Brachial artery] O2 Saturation 98 100 97 01/20/17 01/20/17 05:48 08:42 Temperature 36.9 C 36.8 C Heart Rate Heart Rate [ 80 76 Brachial] Respiratory 16 15 Rate Blood Pressure Blood Pressure 148/88 H 154/97 H [Right Brachial artery] O2 Saturation 98 100 Oxygen O2 Source Room air I&O (Last 24 Hrs): Intake and Output Totals x24h 01/18/17 01/19/17 01/20/17 23:59 23:59 23:59 Intake Total 500 2150 Output Total 750 Balance 500 1400 General: Alert, Oriented x3, Cooperative, No acute distress HEENT: Atraumatic, PERRLA, EOMI Neck: Supple, No JVD, No thyromegaly, +2 carotid pulse wo bruit Lymphatic: no adenopathy Neuro: Alert, CN 2-12 Grossly Intact, Oriented Times 3 Cardiovascular: Regular rate, Normal S1, Normal S2, No murmurs Respiratory: Chest non-tender, No respiratory distress, Breath sounds nml Abdomen: Normal bowel sounds, Soft, Other (TENDERNESS TO RIGHT AND LEFT FLANK) Genitourinary: No Mass, Other (CVA TENDERNESS AND PAIN IN LOWER BACK) Rectal: Stool - Heme NEG Extremities: No clubbing, No cyanosis, No edema, No tenderness/swelling Skin: No rashes, No breakdown, No significant lesion - Results Results: Laboratory Results WBC 4.9 x10^3/uL (4.8-10.8) 01/20/17 05:46 RBC 2.62 10^6/uL (4.70-6.10) L 01/20/17 05:46 Hgb 9.4 g/dL (14.0-18.0) L 01/20/17 05:46 Hct 28.0 % (42.0-52.0) L 01/20/17 05:46 MCV 107.2 fL (80.0-94.0) H 01/20/17 05:46 MCH 35.9 pg (27.0-31.0) H 01/20/17 05:46 MCHC 33.5 g/dL (32.0-36.0) 01/20/17 05:46 RDW 13.8 % (12.0-15.0) 01/20/17 05:46 Plt Count 104 10^3/uL (130-450) L 01/20/17 05:46 MPV 8.9 fL (7.4-11.4) 01/20/17 05:46 Neut # 2.4 10^3/uL (1.5-6.6) 01/20/17 05:46 Lymph # 1.8 10^3/uL (1.5-3.5) 01/20/17 05:46 [place] # 0.5 10^3/uL (0.0-1.0) 01/20/17 05:46 Eos # 0.1 10^3/uL (0.0-0.7) 01/20/17 05:46 Baso # 0.1 10^3/uL (0.0-0.1) 01/20/17 05:46 Absolute Nucleated RBC 0.00 x10^3/uL 01/20/17 05:46 Nucleated RBC % 0.1 /100WBC 01/20/17 05:46 PT 12.1 secs (9.9-12.6) 01/20/17 05:46 INR 1.1 (0.8-1.2) 01/20/17 05:46 Sodium 137 mmol/L (135-145) 01/20/17 05:46 Potassium 5.2 mmol/L (3.5-5.0) H 01/20/17 05:46 Chloride 112 mmol/L (101-111) H 01/20/17 05:46 Carbon Dioxide 18 mmol/L (21-32) L 01/20/17 05:46 Anion Gap 7.0 (6-13) 01/20/17 05:46 BUN 37 mg/dL (6-20) H 01/20/17 05:46 Creatinine 3.2 mg/dL (0.6-1.2) H 01/20/17 05:46 Estimated GFR (MDRD) 22 (>89) L 01/20/17 05:46 Glucose 99 mg/dL (70-100) 01/20/17 05:46 Lactic Acid 0.5 mmol/L (0.5-2.2) 01/20/17 05:46 Calcium 7.5 mg/dL (8.5-10.3) L 01/20/17 05:46 Phosphorus 4.7 mg/dL (2.5-4.6) H 01/20/17 05:46 Magnesium 1.6 mg/dL (1.7-2.8) L 01/20/17 05:46 Total Bilirubin 0.4 mg/dL (0.2-1.0) 01/20/17 05:46 AST 18 IU/L (10-42) 01/20/17 05:46 ALT 11 IU/L (10-60) 01/20/17 05:46 Alkaline Phosphatase 141 IU/L (42-121) H 01/20/17 05:46 Total Creatine Kinase 54 IU/L (22-269) 01/20/17 07:10 Total Protein 6.0 g/dL (6.7-8.2) L 01/20/17 05:46 Albumin 3.0 g/dL (3.2-5.5) L 01/20/17 05:46 Globulin 3.0 g/dL (2.1-4.2) 01/20/17 05:46 Albumin/Globulin Ratio 1.0 (1.0-2.2) 01/20/17 05:46 Lipase 84 U/L (22-51) H 01/19/17 18:50 Urine Color YELLOW 01/19/17 18:30 Urine Clarity CLEAR (CLEAR) 01/19/17 18:30 Urine pH 6.0 PH (5.0-7.5) 01/19/17 18:30 Ur Specific [place] 1.010 (1.002-1.030) 01/19/17 18:30 Urine Protein 100 mg/dL (NEGATIVE) H 01/19/17 18:30 Urine Glucose (UA) NEGATIVE mg/dL (NEGATIVE) 01/19/17 18:30 Urine Ketones NEGATIVE mg/dL (NEGATIVE) 01/19/17 18:30 Urine Occult Blood TRACE-INTA (NEGATIVE) 01/19/17 18:30 Urine Nitrite NEGATIVE (NEGATIVE) 01/19/17 18:30 Urine Bilirubin NEGATIVE (NEGATIVE) 01/19/17 18:30 Urine Urobilinogen 0.2 (NORMAL) E.U./dL (NORMAL) 01/19/17 18:30 Ur Leukocyte Esterase NEGATIVE (NEGATIVE) 01/19/17 18:30 Urine RBC 0-5 /HPF (0-5) 01/19/17 18:30 Urine WBC 0-3 /HPF (0-3) 01/19/17 18:30 Ur Squamous Epith Cells NONE SEEN (<= Few) 01/19/17 18:30 Urine Bacteria None Seen /HPF (None Seen) 01/19/17 18:30 Ur Microscopic Review INDICATED 01/19/17 18:30 Urine Culture Comments NOT INDICATED 01/19/17 18:30 U Random Total Protein 128 mg/dL 01/19/17 22:20 Urine Creatinine 43.7 mg/dL 01/19/17 22:20 Urine Microalbumin 148.3 mg/dL (0-300.0) 01/19/17 22:20 Urine Potassium 12.5 mmol/L 01/19/17 22:20 Ethyl Alcohol < 5.0 mg/dL 01/20/17 05:24 - Procedures Procedures: Procedures ESOPHAGOGASTRODUODENOSCOPY [EGD] W/CLOSED BIOPSY (11/21/14) EXCISION OF SIGMOID COLON, OPEN APPROACH (08/04/15) INSERTION OF INFUSION DEV INTO SPINAL CANAL, PERC APPROACH (08/04/15) INTRODUCE REGIONAL ANESTH IN EPIDURAL SPACE, PERC (08/04/15) PACKED CELL TRANSFUSION (11/21/14) RELEASE TRANSVERSE COLON, OPEN APPROACH (08/04/15)
[2017-01-20] MEDS ORDERED: POLYETHYLENE GLYCOL 3350 17 GM PACKET PO SCH (09:00)
[2017-01-20] MEDS ORDERED: THIAMINE INJ 100 MG, FOLIC ACID INJ 1 MG in SODIUM CHLORIDE 0.9% 100ML 100 ML IV SCH (09:00)
[2017-01-20] MEDS ORDERED: MULTIVITAMIN 10 ML in SODIUM CHLORIDE 0.9% 1,000 ML IV SCH (09:00)
[2017-01-20] MEDS ORDERED: FAMOTIDINE 20 MG TABLET PO SCH (09:00)
[2017-01-20 09:34] LABS: IMMATURE RETIC FRACTION 0.32; RED BLOOD COUNT 2.58 10^6/uL (4.70-6.10)
[2017-01-20] MEDS: THIAMINE 100 MG/1 ML 2 ML MDV IM SCH (09:45)
[2017-01-20 09:47] LABS: INR 1.1 (0.8-1.2); PT - PROTHROMBIN TIME 12.3 secs (9.9-12.6)
[2017-01-20 09:52] LABS: IRON 100 ug/dL (45-182); TOTAL IRON BINDING CAPACITY 283 ug/dL (250-450); TRANSFERRIN 202 mg/dL (180-329)
[2017-01-20 10:08] LABS: FERRITIN 71.2 ng/mL (23.9-336.2)
[2017-01-20] MEDS: MORPHINE 2 MG/ML SYRINGE IVP PRN ×3 (10:22→21:03)
[2017-01-20] MEDS ORDERED: CYANOCOBALAMIN 1,000 MCG/ML VIAL IM SCH (10:47)
[2017-01-20] MEDS ORDERED: PANTOPRAZOLE 40 MG VIAL IV SCH (10:48)
--- NOTE | 2017-01-20 11:26 | Ultrasound Report ---
RENAL ULTRASOUND: 01/20/2017 CLINICAL INDICATION: Trauma, hematuria. COMPARISON: CT 01/19/2017. TECHNIQUE: Real-time scanning was performed with digital media representative static images obtained. FINDINGS: The right kidney measures 10.7 x 5.8 x 5.4 cm, and the left kidney measures 10.0 x 5.7 x 5 .5 cm. There is a 10-mm cortical cyst arising from the left kidney. No hydronephrosis, shadowing ca lculus, or perinephric collection is appreciated on either side. Prevoid, the bladder measures 6.7 x 6.3 x 4.1 cm, yielding a volume of 89 mL. Bilateral ureteral jet s are visualized. No free fluid is present. IMPRESSION: INCIDENTAL LEFT CORTICAL CYST. OTHERWISE, NORMAL RENAL ULTRASOUND. JOB #: [id number] EXT JOB #:[id number]
[2017-01-20] MEDS: PRENATAL VITAMIN TABLET PO SCH (11:32)
[2017-01-20] MEDS: LORazepam 2 MG/ML SYRINGE IVP PRN ×4 (11:32→19:12)
[2017-01-20] MEDS: SODIUM CHLORIDE 0.9% 1,000 ML IV SCH ×4 (11:37→23:28)
[2017-01-20 14:01] LABS: ALBUMIN/GLOBULIN RATIO 1.1 (1.0-2.2); BILIRUBIN,TOTAL 0.5 mg/dL (0.2-1.0); CALCIUM 7.7 mg/dL (8.5-10.3); CREATININE 2.9 mg/dL (0.6-1.2); POTASSIUM 5.3 mmol/L (3.5-5.0)
[2017-01-20] MEDS: ACETAMINOPHEN 325 MG TABLET PO PRN (14:34)
[2017-01-20] MEDS: HYDROmorphone 0.5 MG/0.5 ML SYRINGE IVP PRN ×3 (14:34→19:11)
[2017-01-20] MEDS: NITROGLYCERIN 2% PASTE TOP SCH (14:49)
[2017-01-21] MEDS: LORazepam 0.5 MG TABLET PO PRN ×3 (00:21→19:26)
[2017-01-21] MEDS: MORPHINE 2 MG/ML SYRINGE IVP PRN ×3 (00:21→08:54)
[2017-01-21] MEDS: SODIUM CHLORIDE 0.9% 1,000 ML IV SCH (04:40)
[2017-01-21 05:43] LABS: BASOPHILS % (AUTO) 1.1 %; EOSINOPHILS # (AUTO) 0.1 10^3/uL (0.0-0.7); EOSINOPHILS % (AUTO) 2.9 %; HCT - HEMATOCRIT 28.1 % (42.0-52.0); HGB - HEMOGLOBIN 9.3 g/dL (14.0-18.0); LYMPHOCYTES # (AUTO) 1.1 10^3/uL (1.5-3.5); LYMPHOCYTES % (AUTO) 26.8 %; MEAN CORPUSCULAR HEMOGLOBIN 35.9 pg (27.0-31.0); MEAN CORPUSCULAR VOLUME 108.8 fL (80.0-94.0); MEAN PLATELET VOLUME 9.5 fL (7.4-11.4); MONOCYTES # (AUTO) 0.3 10^3/uL (0.0-1.0); MONOCYTES % (AUTO) 8.2 %; NEUTROPHILS # (AUTO) 2.4 10^3/uL (1.5-6.6); RED BLOOD COUNT 2.58 10^6/uL (4.70-6.10); RED CELL DISTRIBUTION WIDTH 13.7 % (12.0-15.0); UNCORRECTED WHITE BLOOD COUNT 3.9 x10^3/uL; WHITE BLOOD COUNT 3.9 x10^3/uL (4.8-10.8)
[2017-01-21 05:55] LABS: ALBUMIN/GLOBULIN RATIO 1.1 (1.0-2.2); BILIRUBIN,TOTAL 0.6 mg/dL (0.2-1.0); CALCIUM 7.9 mg/dL (8.5-10.3); CREATININE 2.7 mg/dL (0.6-1.2); POTASSIUM 5.5 mmol/L (3.5-5.0); TOTAL PROTEIN 5.8 g/dL (6.7-8.2)
[2017-01-21] MEDS: SODIUM CHLORIDE FLUSH 0.9% 10 ML SYRINGE IVP SCH ×3 (06:15→21:22)
[2017-01-21] MEDS ORDERED: cloNIDine 0.1 MG TABLET PO SCH (08:11)
[2017-01-21] MEDS: SODIUM CHLORIDE FLUSH 0.9% 10 ML SYRINGE IVP PRN ×2 (08:54→21:22)
[2017-01-21] MEDS: LORazepam 2 MG/ML SYRINGE IVP PRN (08:54)
[2017-01-21] MEDS ORDERED: SODIUM POLYSTYRENE SULFONATE 15 GM/60 ML BOTTLE PO SCH ×2 (09:00→10:34)
[2017-01-21] MEDS: MAGNESIUM OXIDE 400 MG TABLET PO SCH ×2 (09:01→21:20)
[2017-01-21] MEDS: PRENATAL VITAMIN TABLET PO SCH (09:01)
[2017-01-21] MEDS: NICOTINE 21 MG PATCH TOP SCH (09:01)
[2017-01-21] MEDS: THIAMINE 100 MG/1 ML 2 ML MDV IM SCH (10:36)
[2017-01-21] MEDS ORDERED: ONDANSETRON ODT 4 MG TABLET TL PRN (10:39)
[2017-01-21] MEDS ORDERED: methylPREDNISolone SUCCINATE 125 MG/2 ML VIAL IVP SCH (10:40)
[2017-01-21] MEDS ORDERED: PROMETHAZINE 25 MG TABLET PO PRN (10:41)
--- NOTE | 2017-01-21 10:45 | PROVIDER PROGRESS NOTE ---
Assessment/Plan - Problem List (1) Acute kidney injury superimposed on chronic kidney disease Assessment/Plan: improved. kidney function is improving but still having some electrolyte imbalances. gave Kayexalate for hyperkalemia and will monitor level with daily lab draws. He will need to see nephrology outpatient for CKD. He is drinking and eating. will avoid high potassium foods. he is on renal diet. (2) Renal hyperphosphaturia Assessment/Plan: acute on chronic. gave calcium binders and will recheck phosphorus level with daily lab draws. (3) Hyperkalemia, diminished renal excretion Assessment/Plan: acute. continue to monitor output and monitor with daily lab draws. He was given kayexalate and IVF for hydration. He is on a renal diet with low potassium and phosphorus. (4) Alcohol abuse with alcohol-induced disorder Assessment/Plan: chronic. he has been counseled on alcohol abuse and cessation. continue [facility] protocol. Ativan changed to oral instead of IV. will discharge home on a Librium taper for withdrawal. (5) Nicotine dependence, cigarettes, uncomplicated Assessment/Plan: chronic. on nicotine patch as needed. given smoking cessation education and counseling (6) Fall as cause of accidental injury at home as place of occurrence Qualifiers: Encounter type: subsequent encounter Qualified Code(s): W19.XXXD - Unspecified fall, subsequent encounter; Y92.009 - Unspecified place in unspecified non-institutional (private) residence as the place of occurrence of the external cause; Y92.009 - Unspecified place in unspecified non- institutional (private) residence as the place of occurrence of the external cause Assessment/Plan: improved. patient still continues to have back pain in region where he fell. continue with pain medications but will DC morphine and dilaudid and given tramadol and one dose of solumedrol to help with pain. (7) PTSD (post-traumatic stress disorder) Assessment/Plan: chronic. continue with ativan and monitor behavior - Current Meds Current Meds: Current Medications Generic Name Dose Route Start Last Admin Trade Name Freq PRN Reason Stop Dose Admin Acetaminophen 650 mg 01/20/17 14:14 01/20/17 14:34 Tylenol PO 650 mg Q4HR PRN Administration Pain or Fever > 38C (100.4F) Lorazepam 2 mg 01/20/17 04:39 01/20/17 06:09 Ativan PO 2 mg Q1H PRN Administration CIWA>8 Protocol Magnesium Oxide 400 mg 01/21/17 09:00 01/21/17 09:01 Mag Ox PO 400 mg BID WILLARD Administration Morphine Sulfate 2 mg 01/20/17 09:11 01/21/17 08:54 Morphine IVP 2 mg Q2H PRN Administration PAIN Nicotine 1 patch 01/19/17 23:00 01/21/17 09:01 Nicoderm TOP 1 patch DAILY WILLARD Administration Nitroglycerin 1 inch 01/20/17 15:00 01/20/17 14:49 Nitro-Bid (Pkt) TOP 1 inch Q24H WILLARD Administration Oxycodone HCl 5 mg 01/19/17 21:12 01/20/17 19:51 Roxicodone PO 5 mg Q4HR PRN Administration Pain 5 to 7 Multivit/Folic Acid/Iron 1 tab 01/20/17 12:00 01/21/17 09:01 Trinatal Rx 1 PO 1 tab DAILYWM WILLARD Administration Sodium Chloride 10 ml 01/19/17 21:12 01/21/17 08:54 Normal Saline Flush 0.9% IVP 10 ml PRN PRN Administration NEEDED PER PROVIDER ORDERS Sodium Chloride 10 ml 01/19/17 22:00 01/21/17 06:15 Normal Saline Flush 0.9% IVP Not Given Q8HR WILLARD Zolpidem Tartrate 5 mg 01/19/17 21:12 01/20/17 01:09 Ambien PO 5 mg QPM PRN Administration Insomnia - Lab Result Lab results reviewed: Yes Fish Bone Diagrams: 01/21/17 05:25 01/21/17 05:25 Other Lab Results: Abnormal Lab Results 01/19/17 01/19/17 01/19/17 18:30 18:50 18:50 WBC RBC 3.05 10^6/uL L 10^6/uL (4.70-6.10) Hgb 10.9 g/dL L g/dL (14.0-18.0) Hct 32.4 % L % (42.0-52.0) MCV 106.2 fL H fL (80.0-94.0) MCH 35.8 pg H pg (27.0-31.0) Plt Count Lymph # Absolute Retic Potassium Chloride Carbon Dioxide 19 mmol/L L mmol/L (21-32) Anion Gap BUN 42 mg/dL H mg/dL (6-20) Creatinine 3.6 mg/dL H mg/dL (0.6-1.2) Estimated GFR (MDRD) 19 L (>89) Glucose 101 mg/dL H mg/dL (70-100) Calcium 8.1 mg/dL L mg/dL (8.5-10.3) Phosphorus Magnesium Alkaline Phosphatase 180 IU/L H IU/L (42-121) Total Protein Albumin Lipase 84 U/L H U/L (22-51) Urine Protein 100 mg/dL H mg/dL (NEGATIVE) 01/20/17 01/20/17 01/20/17 05:46 05:46 09:10 WBC RBC 2.62 10^6/uL L 10^6/uL 2.58 10^6/uL L 10^6/uL (4.70-6.10) (4.70-6.10) Hgb 9.4 g/dL L g/dL (14.0-18.0) Hct 28.0 % L % (42.0-52.0) MCV 107.2 fL H fL (80.0-94.0) MCH 35.9 pg H pg (27.0-31.0) Plt Count 104 10^3/uL L 10^3/uL (130-450) Lymph # Absolute Retic 0.016 10^6/uL L 10^6/uL (0.020-0.110) Potassium 5.2 mmol/L H mmol/L (3.5-5.0) Chloride 112 mmol/L H mmol/L (101-111) Carbon Dioxide 18 mmol/L L mmol/L (21-32) Anion Gap BUN 37 mg/dL H mg/dL (6-20) Creatinine 3.2 mg/dL H mg/dL (0.6-1.2) Estimated GFR (MDRD) 22 L (>89) Glucose Calcium 7.5 mg/dL L mg/dL (8.5-10.3) Phosphorus 4.7 mg/dL H mg/dL (2.5-4.6) Magnesium 1.6 mg/dL L mg/dL (1.7-2.8) Alkaline Phosphatase 141 IU/L H IU/L (42-121) Total Protein 6.0 g/dL L g/dL (6.7-8.2) Albumin 3.0 g/dL L g/dL (3.2-5.5) Lipase Urine Protein 01/20/17 01/21/17 01/21/17 13:03 05:25 05:25 WBC 3.9 x10^3/uL L x10^3/uL (4.8-10.8) RBC 2.58 10^6/uL L 10^6/uL (4.70-6.10) Hgb 9.3 g/dL L g/dL (14.0-18.0) Hct 28.1 % L % (42.0-52.0) MCV 108.8 fL H fL (80.0-94.0) MCH 35.9 pg H pg (27.0-31.0) Plt Count 94 10^3/uL L 10^3/uL (130-450) Lymph # 1.1 10^3/uL L 10^3/uL (1.5-3.5) Absolute Retic Potassium 5.3 mmol/L H mmol/L 5.5 mmol/L H mmol/L (3.5-5.0) (3.5-5.0) Chloride 112 mmol/L H mmol/L 113 mmol/L H mmol/L (101-111) (101-111) Carbon Dioxide 16 mmol/L L mmol/L 18 mmol/L L mmol/L (21-32) (21-32) Anion Gap 5.0 L (6-13) BUN 34 mg/dL H mg/dL 32 mg/dL H mg/dL (6-20) (6-20) Creatinine 2.9 mg/dL H mg/dL 2.7 mg/dL H mg/dL (0.6-1.2) (0.6-1.2) Estimated GFR (MDRD) 25 L 27 L (>89) (>89) Glucose 115 mg/dL H mg/dL (70-100) Calcium 7.7 mg/dL L mg/dL 7.9 mg/dL L mg/dL (8.5-10.3) (8.5-10.3) Phosphorus Magnesium Alkaline Phosphatase 141 IU/L H IU/L 153 IU/L H IU/L (42-121) (42-121) Total Protein 6.0 g/dL L g/dL 5.8 g/dL L g/dL (6.7-8.2) (6.7-8.2) Albumin 3.1 g/dL L g/dL 3.0 g/dL L g/dL (3.2-5.5) (3.2-5.5) Lipase Urine Protein - EKG Results EKG Interpreted Independently: No - Diagnostic Imaging Results Diagnostic Imaging Results: Final report reviewed Diagnostic Imaging Results Comments: ultrasound of retroperitoneal- normal with exception of renal cyst - Additional Planning Condition/Complexity: Improved My Orders: My Active Orders 01/20/17 12:00 Vitamin [Trinatal Rx 1] 1 tab PO DAILYWM 01/20/17 14:14 Acetaminophen [Tylenol] 650 mg PO Q4HR PRN 01/20/17 15:00 Nitroglycerin 2% Paste (Pkt) [Nitro-Bid (Pkt)] 1 inch TOP Q24H 01/21/17 09:00 Magnesium Oxide [Mag Ox] 400 mg PO BID 01/21/17 10:34 Sod Polystyrene Sulf. [Kayexalate] 15 gm PO ONCE ONE 01/21/17 10:39 Ondansetron Odt [Zofran Odt] 4 mg TL Q4HR PRN traMADol [Ultram] 50 mg PO Q4HR PRN 01/21/17 10:40 methylPREDNISolone SUCCINATE [SOLU-Medrol (125MG VIAL)] 125 mg IVP ONCE STA 01/21/17 10:41 Promethazine [Phenergan] 25 mg PO Q6HR PRN 01/21/17 Lunch Hepatic/Renal Diet [DIET] Consult/Specialty: Nephrology Plan Discussed with:: Patient, Case Management Time Spent: 31-60 minutes Additional Planning Notes: Plan to discharge patient within the next 24 hours but he will need followup with nephrology for chronic kidney disease. He is still having pain in lower back and will need additional pain control and electrolyte improvement before discharge Time spent with patient was 45 minutes with assessment and planning. Subjective - Subjective Patient Reports: Feeling Better, Resting Comfortably, Back Pain, Other (back pain is better but still complaining even with pain medications.) Nursing Reports: Pain Objective Vital Signs: Vital Signs - 24 hr 01/20/17 01/20/17 01/20/17 11:12 12:46 14:01 Temperature 36.5 C Heart Rate [ 74 106 H 84 Brachial] Respiratory 16 Rate Blood Pressure 166/108 H [Left Brachial artery] Blood Pressure 182/99 H 171/99 H 168/106 H [Right Brachial artery] O2 Saturation 100 01/20/17 01/20/17 01/20/17 15:25 19:41 20:35 Temperature 36.6 C 36.7 C Heart Rate [ 81 85 93 Brachial] Respiratory 20 16 Rate Blood Pressure 159/91 H 158/104 H 150/103 H [Left Brachial artery] Blood Pressure [Right Brachial artery] O2 Saturation 98 100 01/20/17 01/21/17 01/21/17 23:32 05:32 08:05 Temperature 36.5 C 36.5 C 36.5 C Heart Rate [ 85 79 84 Brachial] Respiratory 18 16 18 Rate Blood Pressure 159/108 H 163/104 H 173/104 H [Left Brachial artery] Blood Pressure 171/114 H [Right Brachial artery] O2 Saturation 99 100 100 Oxygen O2 Source Room air I&O (Last 24 Hrs): Intake and Output Totals x24h 01/19/17 01/20/17 01/21/17 23:59 23:59 23:59 Intake Total 5250.000 5453 Balance 5250.000 5453 General: Alert, Oriented x3, Cooperative, No acute distress HEENT: Atraumatic, PERRLA, EOMI Neck: Supple, No JVD, No thyromegaly Lymphatic: no adenopathy Neuro: Alert, CN 2-12 Grossly Intact, Oriented Times 3 Cardiovascular: Regular rate, Normal S1, Normal S2 Respiratory: Chest non-tender, No respiratory distress, Breath sounds nml Abdomen: Normal bowel sounds, Soft, No tenderness, No hepatospenomegaly, No masses Genitourinary: Normal Inspection Extremities: No clubbing, No cyanosis, No edema, Normal pulses, No tenderness/ swelling Skin: No rashes, No breakdown, No significant lesion - Results Results: Laboratory Results WBC 3.9 x10^3/uL (4.8-10.8) L 01/21/17 05:25 RBC 2.58 10^6/uL (4.70-6.10) L 01/21/17 05:25 Hgb 9.3 g/dL (14.0-18.0) L 01/21/17 05:25 Hct 28.1 % (42.0-52.0) L 01/21/17 05:25 MCV 108.8 fL (80.0-94.0) H 01/21/17 05:25 MCH 35.9 pg (27.0-31.0) H 01/21/17 05:25 MCHC 33.0 g/dL (32.0-36.0) 01/21/17 05:25 RDW 13.7 % (12.0-15.0) 01/21/17 05:25 Plt Count 94 10^3/uL (130-450) L 01/21/17 05:25 MPV 9.5 fL (7.4-11.4) 01/21/17 05:25 Reticulocyte % (Auto) 0.62 % (0.5-2.3) 01/20/17 09:10 Neut # 2.4 10^3/uL (1.5-6.6) 01/21/17 05:25 Lymph # 1.1 10^3/uL (1.5-3.5) L 01/21/17 05:25 [place] # 0.3 10^3/uL (0.0-1.0) 01/21/17 05:25 Eos # 0.1 10^3/uL (0.0-0.7) 01/21/17 05:25 Baso # 0.0 10^3/uL (0.0-0.1) 01/21/17 05:25 Absolute Nucleated RBC 0.00 x10^3/uL 01/21/17 05:25 Nucleated RBC % 0.0 /100WBC 01/21/17 05:25 Absolute Retic 0.016 10^6/uL (0.020-0.110) L 01/20/17 09:10 PT 12.3 secs (9.9-12.6) 01/20/17 09:10 INR 1.1 (0.8-1.2) 01/20/17 09:10 Sodium 136 mmol/L (135-145) 01/21/17 05:25 Potassium 5.5 mmol/L (3.5-5.0) H 01/21/17 05:25 Chloride 113 mmol/L (101-111) H 01/21/17 05:25 Carbon Dioxide 18 mmol/L (21-32) L 01/21/17 05:25 Anion Gap 5.0 (6-13) L 01/21/17 05:25 BUN 32 mg/dL (6-20) H 01/21/17 05:25 Creatinine 2.7 mg/dL (0.6-1.2) H 01/21/17 05:25 Estimated GFR (MDRD) 27 (>89) L 01/21/17 05:25 Glucose 100 mg/dL (70-100) 01/21/17 05:25 Lactic Acid 0.5 mmol/L (0.5-2.2) 01/20/17 05:46 Calcium 7.9 mg/dL (8.5-10.3) L 01/21/17 05:25 Phosphorus 4.7 mg/dL (2.5-4.6) H 01/20/17 05:46 Magnesium 2.0 mg/dL (1.7-2.8) 01/21/17 05:25 Iron 100 ug/dL (45-182) 01/20/17 09:10 TIBC 283 ug/dL (250-450) 01/20/17 09:10 % Saturation 35 % (20-50) 01/20/17 09:10 Transferrin 202 mg/dL (180-329) 01/20/17 09:10 Ferritin 71.2 ng/mL (23.9-336.2) 01/20/17 09:10 Total Bilirubin 0.6 mg/dL (0.2-1.0) 01/21/17 05:25 AST 21 IU/L (10-42) 01/21/17 05:25 ALT 12 IU/L (10-60) 01/21/17 05:25 Alkaline Phosphatase 153 IU/L (42-121) H 01/21/17 05:25 Lactate Dehydrogenase 117 IU/L (91-225) 01/20/17 09:10 Total Creatine Kinase 54 IU/L (22-269) 01/20/17 07:10 Total Protein 5.8 g/dL (6.7-8.2) L 01/21/17 05:25 Albumin 3.0 g/dL (3.2-5.5) L 01/21/17 05:25 Globulin 2.8 g/dL (2.1-4.2) 01/21/17 05:25 Albumin/Globulin Ratio 1.1 (1.0-2.2) 01/21/17 05:25 Lipase 84 U/L (22-51) H 01/19/17 18:50 Vitamin B12 215 pg/mL (180-914) 01/20/17 09:10 Urine Color YELLOW 01/19/17 18:30 Urine Clarity CLEAR (CLEAR) 01/19/17 18:30 Urine pH 6.0 PH (5.0-7.5) 01/19/17 18:30 Ur Specific [place] 1.010 (1.002-1.030) 01/19/17 18:30 Urine Protein 100 mg/dL (NEGATIVE) H 01/19/17 18:30 Urine Glucose (UA) NEGATIVE mg/dL (NEGATIVE) 01/19/17 18:30 Urine Ketones NEGATIVE mg/dL (NEGATIVE) 01/19/17 18:30 Urine Occult Blood TRACE-INTA (NEGATIVE) 01/19/17 18:30 Urine Nitrite NEGATIVE (NEGATIVE) 01/19/17 18:30 Urine Bilirubin NEGATIVE (NEGATIVE) 01/19/17 18:30 Urine Urobilinogen 0.2 (NORMAL) E.U./dL (NORMAL) 01/19/17 18:30 Ur Leukocyte Esterase NEGATIVE (NEGATIVE) 01/19/17 18:30 Urine RBC 0-5 /HPF (0-5) 01/19/17 18:30 Urine WBC 0-3 /HPF (0-3) 01/19/17 18:30 Ur Squamous Epith Cells NONE SEEN (<= Few) 01/19/17 18:30 Urine Bacteria None Seen /HPF (None Seen) 01/19/17 18:30 Ur Microscopic Review INDICATED 01/19/17 18:30 Urine Culture Comments NOT INDICATED 01/19/17 18:30 U Random Total Protein 128 mg/dL 01/19/17 22:20 Urine Creatinine 43.7 mg/dL 01/19/17 22:20 Urine Microalbumin 148.3 mg/dL (0-300.0) 01/19/17 22:20 Urine Potassium 12.5 mmol/L 01/19/17 22:20 Ethyl Alcohol < 5.0 mg/dL 01/20/17 05:24 - Procedures Procedures: Procedures ESOPHAGOGASTRODUODENOSCOPY [EGD] W/CLOSED BIOPSY (11/21/14) EXCISION OF SIGMOID COLON, OPEN APPROACH (08/04/15) INSERTION OF INFUSION DEV INTO SPINAL CANAL, PERC APPROACH (08/04/15) INTRODUCE REGIONAL ANESTH IN EPIDURAL SPACE, PERC (08/04/15) PACKED CELL TRANSFUSION (11/21/14) RELEASE TRANSVERSE COLON, OPEN APPROACH (08/04/15)
[2017-01-21] MEDS: traMADol 50 MG TABLET PO PRN ×4 (11:16→23:38)
[2017-01-21] MEDS: oxyCODONE 5 MG TABLET PO PRN ×3 (12:48→21:21)
[2017-01-21] MEDS: NITROGLYCERIN 2% PASTE TOP SCH (15:41)
[2017-01-21] MEDS ORDERED: chlordiazePOXIDE 25 MG CAPSULE PO SCH (16:00)
[2017-01-21] MEDS ORDERED: GABAPENTIN 300 MG CAPSULE PO SCH (16:00)
[2017-01-21] MEDS: chlordiazePOXIDE 25 MG CAPSULE PO SCH ×3 (16:15→23:38)
[2017-01-21] MEDS ORDERED: LIDOCAINE PATCH 5% TOP PRN (16:42)
[2017-01-21] MEDS: ACETAMINOPHEN 325 MG TABLET PO PRN ×2 (17:03→21:21)
[2017-01-22] MEDS: oxyCODONE 5 MG TABLET PO PRN ×2 (01:14→08:54)
[2017-01-22] MEDS: ACETAMINOPHEN 325 MG TABLET PO PRN ×2 (01:14→08:55)
[2017-01-22] MEDS: ZOLPIDEM 5 MG TABLET PO PRN (01:14)
[2017-01-22 06:21] LABS: BASOPHILS % (AUTO) 0.2 %; HCT - HEMATOCRIT 26.7 % (42.0-52.0); LYMPHOCYTES # (AUTO) 0.5 10^3/uL (1.5-3.5); MEAN CORPUSCULAR HGB CONC 33.6 g/dL (32.0-36.0); MEAN PLATELET VOLUME 10.1 fL (7.4-11.4); MONOCYTES # (AUTO) 0.3 10^3/uL (0.0-1.0); MONOCYTES % (AUTO) 4.5 %; NEUTROPHILS # (AUTO) 4.9 10^3/uL (1.5-6.6); NEUTROPHILS % (AUTO) 86.3 %; RED CELL DISTRIBUTION WIDTH 13.5 % (12.0-15.0); UNCORRECTED WHITE BLOOD COUNT 5.6 x10^3/uL; WHITE BLOOD COUNT 5.6 x10^3/uL (4.8-10.8)
[2017-01-22 06:38] LABS: ALBUMIN/GLOBULIN RATIO 0.9 (1.0-2.2); BILIRUBIN,TOTAL 0.4 mg/dL (0.2-1.0); CALCIUM 8.1 mg/dL (8.5-10.3); MAGNESIUM 1.7 mg/dL (1.7-2.8); POTASSIUM 5.7 mmol/L (3.5-5.0)
[2017-01-22] MEDS: chlordiazePOXIDE 25 MG CAPSULE PO SCH ×2 (06:48→12:19)
[2017-01-22] MEDS: traMADol 50 MG TABLET PO PRN ×2 (06:49→12:19)
[2017-01-22] MEDS: SODIUM CHLORIDE FLUSH 0.9% 10 ML SYRINGE IVP SCH ×2 (06:49→14:38)
[2017-01-22] MEDS ORDERED: SODIUM POLYSTYRENE SULFONATE 15 GM/60 ML BOTTLE PO SCH (07:55)
[2017-01-22] MEDS ORDERED: SODIUM CHLORIDE 0.9% 1,000 ML IV ONE ×2 (07:55→09:52)
[2017-01-22] MEDS ORDERED: MAGNESIUM SULFATE 2 GRAM 2 GM/50 ML BAG IV SCH (08:00)
[2017-01-22] MEDS: NICOTINE 21 MG PATCH TOP SCH (08:45)
[2017-01-22] MEDS: MAGNESIUM OXIDE 400 MG TABLET PO SCH (08:45)
[2017-01-22] MEDS: PRENATAL VITAMIN TABLET PO SCH (08:45)
[2017-01-22] MEDS: LORazepam 0.5 MG TABLET PO PRN (08:49)
[2017-01-22] MEDS ORDERED: CALCIUM GLUCONATE 1,000 MG in SODIUM CHLORIDE 0.9% 50 ML IV SCH (09:00)
[2017-01-22 13:26] LABS: BILIRUBIN,TOTAL 0.6 mg/dL (0.2-1.0); CALCIUM 8.3 mg/dL (8.5-10.3); CREATININE 2.9 mg/dL (0.6-1.2); POTASSIUM 4.7 mmol/L (3.5-5.0); TOTAL PROTEIN 6.4 g/dL (6.7-8.2)
[2017-01-22] MEDS ORDERED: CALCIUM CITRATE 250 MG TABLET PO SCH (14:03)
--- NOTE | 2017-01-22 14:07 | DISCHARGE SUMMARY ---
"Discharge Summary Admit Date: 01/20/17 Discharge Date: 01/22/17 Discharging Provider: FABIO BRANDON APRN Primary Care Provider: NONE Code Status: Attempt Resuscitation Condition at Discharge: Stable Discharge Disposition: 01 Home, Self Care Discharge Facility Name: HOME - DIAGNOSES Admission Diagnoses: ACUTE KIDNEY INJURY WITH CKD STAGE 3 ALCOHOL ABUSE WITH DEPENDENCE, UNCOMPLICATED ALCOHOL INDUCED ANXIETY DISORDER NICOTINE DEPENDENCE, CIGARETTES, UNCOMPLICATED SECONDARY HYPERTENSION WITH TOBACCO ABUSE Discharge Diagnoses with Status of Each Condition: ACUTE KIDNEY INJURY WITH CKD STAGE 3 HYPERKALEMIA, ACUTE WITH CKD STAGE 3 ALCOHOL ABUSE WITH DEPENDENCE, UNCOMPLICATED ALCOHOL INDUCED ANXIETY DISORDER NICOTINE DEPENDENCE, CIGARETTES, UNCOMPLICATED SECONDARY HYPERTENSION WITH TOBACCO ABUSE - HPI History of Present Illness: - History of Present Illness HPI Comment/Other: Patient is a 36-year-old gentleman with a past medical history significant for hypertension, asthma, chronic kidney disease stage III, diverticulitis status post colon resection, alcohol and tobacco abuse who presented to the emergency department with a chief complaint of fall. The patient states that he had an episode 2 days ago where he blacked out and passed out hitting his head. The patient states that he was not drinking at that time. The patient has always denied drinking every time he is come to the emergency department or being admitted to the hospital but his blood alcohol level has always been positive the patient believes he is a slow metabolizer of alcohol and that is why his alcohol level is always significantly above the legal limit when he presents to the emergency department. The patient states that today he was going up the stairs when he fell hitting his left flank on the staircase. The patient states that when he then went to the bathroom he noticed that he was having some hematuria and therefore decided to come into the emergency department. The patient also states that he is having left lower back, left lower abdominal and left leg pain. The patient also states that he has been having dysuria for 1 week along with a weak stream. The patient states that he has also noticed chills and feeling of hot and cold that has been going on for the last week. The patient otherwise denies any diarrhea or vomiting over the last several days. The patient states that he did drink 1 beer and had half a shot of fireball today but is shocked by his blood alcohol level on presentation. The patient denies any current headache, blurred vision, runny nose, sore throat , cough, nasal congestion, fevers, chest pain, shortness of air, orthopnea, PND , increased lower extremity swelling, diarrhea, constipation, nausea, vomiting, changes in appetite, recent unintentional weight loss, night sweats or focal neurologic deficits. On presentation to the emergency department the patient was afebrile he was slightly hypertensive and heart rate was in the 90s but otherwise he was not in any acute respiratory distress. The patient's lab work did reveal a blood alcohol level of 177. The patient's urine was negative for bacteria and he only had 0-3 WBCs along with 0-5 RBCs with trace occult blood. The patient however was found to have a creatinine of 3.6 with a BUN of 42. The patient's baseline creatinine is 1.7. Given this significant increase in the patient's creatinine the patient was placed in observation for IV hydration and recheck of his creatinine. It was thought the patient likely has been drinking heavily given his recent falls and positive blood alcohol level and creatinine is likely elevated due to dehydration. - CONSULTS | PROCEDURES Consultations: social work Procedures: ULTRASOUND OF RETROPERITONEAL- SHOWED RENAL CYST AND NO HYDRONEPHROSIS OR OBSTRUCTION - HOSPITAL COURSE Hospital Course: Patient is a 36 year old male who presented with FELIZ and dehydration with alcohol abuse and other electrolyte imbalances. ACUTE KIDNEY INJURY WITH CKD STAGE 3 Patient was given IVF NS for aggressive hydration and monitored output. kidney function was monitored with daily electrolyte draws. Urinalysis completed. His kidney function improved back to baseline prior to discharge. He was referred to a nephrology outpatient ALCOHOL ABUSE WITH DEPENDENCE, UNCOMPLICATED Patient does not admit to drinking exccessively. He will be difficult to refer for alcohol support since he is still in denial. Will provide the information to followup outpatient. He was given Ativan and Librium while inpatient and discharged home with Librium. He was on CIWA protocol during inpatient. His magnesium was replaced for low magnesium level. His potassium was reduced with kayexalate, calcium gluconate, and IVF. continued to monitor electrolytes with daily lab draws. ALCOHOL INDUCED ANXIETY DISORDER Patient remained on CIWA protocol and ativan for withdrawal and agitation NICOTINE DEPENDENCE, CIGARETTES, UNCOMPLICATED Patient was provided smoking cessation education and given nicotine patch topical as needed. SECONDARY HYPERTENSION WITH TOBACCO ABUSE, uncomplicated Patient was given clonidine, and nitropaste for elevated blood pressure. He will be discharged home with follow up for blood pressure control with PCP. monitored with vital signs and counseled on tobacco abuse. ACUTE HYPERKALEMIA, WITH OTHER ELECTROLYTES IMBALANCES Patient to received calcium gluconate, kayexalate and replaced magnesium and monitored levels with daily lab draws. will discharge home on magnesium supplements and vitamin D and calcium. DVT prophylaxis was with lovenox and foot pumps - ALLERGIES Allergies/Adverse Reactions: Allergies Allergy/AdvReac Type Severity Reaction Status Date / Time clindamycin Allergy Anaphylaxis Verified 01/19/17 18:19 gabapentin Allergy Anaphylaxis Verified 01/21/17 16:16 hydrocodone bitartrate * Allergy Itching Verified 01/19/17 18:19 [From Vicodin] sulfamethoxazole Allergy Anaphylaxis Verified 01/19/17 18:19 [From Bactrim] trimethoprim [From Bactrim] Allergy Anaphylaxis Verified 01/19/17 18:19 - MEDICATIONS Home Medications: Ambulatory Orders Medication Instructions Recorded Confirmed Lisinopril 20 mg PO DAILY 07/04/14 01/19/17 - PHYSICAL EXAM AT DISCHARGE General Appearance: positive: No acute distress, Alert Eyes Bilateral: positive: Normal inspection, PERRL, EOMI ENT: positive: ENT inspection nml, Pharynx nml, No signs of dehydration Neck: positive: Nml inspection, Thyroid nml, No JVD, Trachea midline Respiratory: positive: Chest non-tender, No respiratory distress, Breath sounds nml Cardiovascular: positive: Regular rate & rhythm, No murmur, No gallop Peripheral Pulses: positive: 2+ Abdomen: positive: Non-tender, No organomegaly, Nml bowel sounds, No distention Back: positive: Nml inspection Skin: positive: Color nml, No rash, Warm, Dry Extremities: positive: Non-tender, Full ROM, Nml appearance, No pedal edema Neurologic/Psychiatric: positive: Oriented x3, CN's nml (2-12), Motor nml, Sensation nml, Mood/affect nml - LABS Result Diagrams: 01/22/17 05:27 01/22/17 13:08 Other Lab Results: Abnormal Lab Results 01/21/17 01/21/17 01/22/17 05:25 05:25 05:27 WBC 3.9 x10^3/uL L x10^3/uL (4.8-10.8) RBC 2.58 10^6/uL L 10^6/uL 2.50 10^6/uL L 10^6/uL (4.70-6.10) (4.70-6.10) Hgb 9.3 g/dL L g/dL 9.0 g/dL L g/dL (14.0-18.0) (14.0-18.0) Hct 28.1 % L % 26.7 % L % (42.0-52.0) (42.0-52.0) MCV 108.8 fL H fL 107.0 fL H fL (80.0-94.0) (80.0-94.0) MCH 35.9 pg H pg 36.0 pg H pg (27.0-31.0) (27.0-31.0) Plt Count 94 10^3/uL L 10^3/uL 105 10^3/uL L 10^3/uL (130-450) (130-450) Lymph # 1.1 10^3/uL L 10^3/uL 0.5 10^3/uL L 10^3/uL (1.5-3.5) (1.5-3.5) Sodium Potassium 5.5 mmol/L H mmol/L (3.5-5.0) Chloride 113 mmol/L H mmol/L (101-111) Carbon Dioxide 18 mmol/L L mmol/L (21-32) Anion Gap 5.0 L (6-13) BUN 32 mg/dL H mg/dL (6-20) Creatinine 2.7 mg/dL H mg/dL (0.6-1.2) Estimated GFR (MDRD) 27 L (>89) Glucose Calcium 7.9 mg/dL L mg/dL (8.5-10.3) AST Alkaline Phosphatase 153 IU/L H IU/L (42-121) Total Protein 5.8 g/dL L g/dL (6.7-8.2) Albumin 3.0 g/dL L g/dL (3.2-5.5) Albumin/Globulin Ratio 01/22/17 01/22/17 05:27 13:08 WBC RBC Hgb Hct MCV MCH Plt Count Lymph # Sodium 133 mmol/L L mmol/L (135-145) Potassium 5.7 mmol/L H mmol/L (3.5-5.0) Chloride Carbon Dioxide 19 mmol/L L mmol/L 19 mmol/L L mmol/L (21-32) (21-32) Anion Gap BUN 37 mg/dL H mg/dL 39 mg/dL H mg/dL (6-20) (6-20) Creatinine 3.0 mg/dL H mg/dL 2.9 mg/dL H mg/dL (0.6-1.2) (0.6-1.2) Estimated GFR (MDRD) 24 L 25 L (>89) (>89) Glucose 169 mg/dL H mg/dL 162 mg/dL H mg/dL (70-100) (70-100) Calcium 8.1 mg/dL L mg/dL 8.3 mg/dL L mg/dL (8.5-10.3) (8.5-10.3) AST 67 IU/L H IU/L (10-42) Alkaline Phosphatase 180 IU/L H IU/L 190 IU/L H IU/L (42-121) (42-121) Total Protein 6.0 g/dL L g/dL 6.4 g/dL L g/dL (6.7-8.2) (6.7-8.2) Albumin 2.9 g/dL L g/dL (3.2-5.5) Albumin/Globulin Ratio 0.9 L (1.0-2.2) - FOLLOW UP Follow Up: PATIENT WAS INSTRUCTED TO SEE PCP WITHIN 1 WEEK OF DISCHARGE AND TO GET REFERRAL TO NEPHROLOGY OUTPATIENT FOR CKD STAGE 3. PATIENT IS IN DENIAL FOR ALCOHOL ABUSE. HE IS NOT READY TO ADDRESS THIS PROBLEM. HE WAS GIVEN PRESCRIPTION FOR LIBRIUM TO HELP WITH ALCOHOL WITHDRAWAL. HE WAS INSTRUCTED TO RETURN TO THE ER IF SYMPTOMS WORSEN OR HE HAS CHEST PAIN OR SHORTNESS OF BREATH - TIME SPENT Time Spent in Discharge (Minutes): 45 (DISCHARGE PLANNING AND ASSESSMENT)"
[2017-01-22 14:32] VITALS: BP 155/96
[2017-01-22] MEDS: NITROGLYCERIN 2% PASTE TOP SCH (14:33)
--- NOTE | 2017-01-22 14:33 | Discharge Plan ---
Discharge Plan Disposition: Home, Self Care Condition: Stable Prescriptions: Ondansetron Odt [Zofran Odt] 4 mg TL Q4HR PRN #18 tablet PRN Reason: Nausea / Vomiting traMADol [Ultram] 50 mg PO Q4HR PRN #24 tablet PRN Reason: Pain chlordiazePOXIDE [Librium] 50 mg PO Q6HR #12 capsule Calcium Citrate/Vitamin D3 [Calcium Citrate +Vit D3 Tablet] 1 each PO BID #30 tablet Magnesium Oxide [Mag Ox] 400 mg PO BID #30 tablet Vitamin [Trinatal Rx 1] 1 tab PO DAILYWM #30 tablet Diet: Regular Activity Restrictions: No Restrictions Shower Restrictions: No Driving Restrictions: No Weight Bearing: Full Weight Instruction Topics: Withdrawal Alcohol What Expect, Addiction Ask These Questions, Addiction Social Use Signs Additional Instructions or Follow Up instructions: PLEASE TAKE ALL HOME MEDICATIONS PRESCRIBED. YOU HAVE BEEN GIVEN ADDITIONAL MEDICATIONS FOR WITHDRAWAL AND FOR ANXIETY. TAKE PRESCRIBED, YOU NEED TO AVOID ALCOHOL WHEN TAKING THESE MEDICATIONS. YOU NEED TO SEEK ALCOHOL ABUSE COUNSELING SINCE IT IS HURTING YOUR KIDNEYS YOU WILL NEED TO SEE A PRIMARY CARE PROVIDER FOR YOUR HIGH BLOOD PRESSURE AND KIDNEY DISEASE. YOU WILL NEED TO SEE A KIDNEY DOCTOR FOR WORSENING KIDNEY FUNCTION. DRINK MOSTLY WATER DURING THE DAY. DO NOT DRINK SODA AND AVOID SUGAR DRINKS PLEASE RETURN TO THE ER FOR WORSENING SYMPTOMS, AND CALL 911 IF YOU HAVE CHEST PAIN OR SHORTNESS OF BREATH. No Smoking: If you smoke, Please STOP! Call for help. Follow-up with: Neris Hutchinson PA-C [Primary Care Provider] -
== END 2017-01-22 15:29 | disposition home or self-care (01) | DRG 683 ==
LOC: ED 18:11 → OBS 21:11 → MS2 01-20 10:50 → OBSVTOIN 01-20 10:52
PROVIDERS: ADMIT Internal Medicine; ATTEND Nurse Practitioner
DX: N17.9 Acute kidney failure, unspecified (principal); S20.211A Contusion of right front wall of thorax, initial encounter; F10.280 Alcohol dependence with alcohol-induced anxiety disorder; Y92.009 Unspecified place in unspecified non-institutional (private) residence as the place of occurrence of the external cause; R31.9 Hematuria, unspecified; N18.9 Chronic kidney disease, unspecified; I12.9 Hypertensive chronic kidney disease with stage 1 through stage 4 chronic kidney disease, or unspecified chronic kidney disease; J45.909 Unspecified asthma, uncomplicated; N18.3 Chronic kidney disease, stage 3 (moderate); F32.9 Major depressive disorder, single episode, unspecified; F41.9 Anxiety disorder, unspecified; F43.10 Post-traumatic stress disorder, unspecified; Y90.6 Blood alcohol level of 120-199 mg/100 ml; F17.200 Nicotine dependence, unspecified, uncomplicated; E87.5 Hyperkalemia; E86.0 Dehydration; E83.42 Hypomagnesemia; F43.12 Post-traumatic stress disorder, chronic; M54.5 Low back pain; R10.32 Left lower quadrant pain; M79.605 Pain in left leg; W01.198A Fall on same level from slipping, tripping and stumbling with subsequent striking against other object, initial encounter; F17.210 Nicotine dependence, cigarettes, uncomplicated; G47.30 Sleep apnea, unspecified; M19.90 Unspecified osteoarthritis, unspecified site; Z91.81 History of falling; Z90.49 Acquired absence of other specified parts of digestive tract
CPT/HCPCS: 36415; 70450; 71260; 74177; 76775; 80053; 80320; 81001; 81003; 82043; 82550; 82570; 82607; 82728; 83540; 83605; 83615; 83690; 83735; 84100; 84133; 84156; 84466; 85025; 85044; 85610; 87086; 96361; 96365; 96367; 96374; 99284; 99285

== ENCOUNTER 2017-01-24 09:45 | Outpatient (CLI) | payer MEDICARE, MEDICAID | END 2017-01-24 09:46 | disposition home or self-care (01) | LOC: LAB.R 09:45 | PROVIDERS: ATTEND Internal Medicine | DX: J02.9 Acute pharyngitis, unspecified (principal) | CPT/HCPCS: 87070 ==

== ENCOUNTER 2017-02-01 12:42 | Outpatient (CLI) | payer MEDICARE, MEDICAID ==
[2017-02-01 17:42] LABS: BASOPHILS # (AUTO) 0.1 10^3/uL (0.0-0.1); BASOPHILS % (AUTO) 0.8 %; EOSINOPHILS # (AUTO) 0.1 10^3/uL (0.0-0.7); EOSINOPHILS % (AUTO) 1.2 %; HCT - HEMATOCRIT 32.1 % (42.0-52.0); HGB - HEMOGLOBIN 10.7 g/dL (14.0-18.0); LYMPHOCYTES # (AUTO) 1.6 10^3/uL (1.5-3.5); LYMPHOCYTES % (AUTO) 19.8 %; MEAN CORPUSCULAR HEMOGLOBIN 35.6 pg (27.0-31.0); MEAN CORPUSCULAR HGB CONC 33.2 g/dL (32.0-36.0); MEAN CORPUSCULAR VOLUME 107.3 fL (80.0-94.0); MEAN PLATELET VOLUME 9.4 fL (7.4-11.4); MONOCYTES # (AUTO) 0.6 10^3/uL (0.0-1.0); MONOCYTES % (AUTO) 8.1 %; NEUTROPHILS # (AUTO) 5.5 10^3/uL (1.5-6.6); NEUTROPHILS % (AUTO) 70.1 %; RED BLOOD COUNT 2.99 10^6/uL (4.70-6.10); UNCORRECTED WHITE BLOOD COUNT 7.9 x10^3/uL; WHITE BLOOD COUNT 7.9 x10^3/uL (4.8-10.8)
[2017-02-01 19:31] LABS: CALCIUM 8.5 mg/dL (8.5-10.3); CREATININE 4.2 mg/dL (0.6-1.2)
[2017-02-01 19:32] LABS: POTASSIUM 6.6 mmol/L (3.5-5.0)
== END 2017-02-01 12:43 | disposition home or self-care (01) ==
LOC: LAB.F 12:42
PROVIDERS: ATTEND Nurse Practitioner Family
DX: N18.3 Chronic kidney disease, stage 3 (moderate) (principal); F10.20 Alcohol dependence, uncomplicated
CPT/HCPCS: 36415; 80048; 82977; 85025